=== PATIENT | female | born 1995 | race Caucasian/White ===

== ENCOUNTER 2021-01-13 15:25 | Emergency (ER) | payer OTHER ==
[~2021-01-13] VITALS: Ht 162.6 cm; Wt 64.8 kg
[~2021-01-13 15:25] MED LIST: RALTEGRAVIR 400 MG TAB (ISENTRESS) PO SCH
[2021-01-13] MEDS ORDERED: CYRE1TAB3 PO (15:32)
[2021-01-13 16:41] LABS: BASO % 0.4 % (0.0-1.0); EOS # 0.1 10^3/uL (0.0-0.5); EOS % 1.3 % (0.0-3.0); HEMATOCRIT 39.5 % (36.0-47.0); HEMOGLOBIN 13.7 g/dl (12.0-15.5); LYMPH # 2.2 10^3/uL (1.5-5.0); MEAN CORPUSCULAR HEMOGLOBIN 32.8 pg (27.0-33.0); MEAN CORPUSCULAR HGB CONC 34.7 g/dl (32.0-36.5); MEAN CORPUSCULAR VOLUME 94.5 fl (80.0-96.0); MONO # 0.5 10^3/uL (0.0-0.8); MONO % 6.7 % (2.0-8.0); NEUTROPHILS # 4.3 10^3/uL (1.5-8.5); NEUTROPHILS % 60.5 % (36.0-66.0); PLATELET COUNT, AUTOMATED 263 10^3/uL (150-450); RED BLOOD COUNT 4.18 10^6/uL (4.00-5.40); WHITE BLOOD COUNT 7.1 10^3/uL (4.0-10.0)
[2021-01-13 17:07] LABS: ALBUMIN 3.6 GM/DL (3.2-5.2); ALT/SGPT 22 U/L (12-78); BILIRUBIN,TOTAL 0.3 MG/DL (0.2-1.0); BLOOD UREA NITROGEN 9 MG/DL (7-18); CALCIUM LEVEL 9.8 MG/DL (8.5-10.1); CARBON DIOXIDE LEVEL 26 MEQ/L (21-32); CHLORIDE LEVEL 109 MEQ/L (98-107); CREATININE FOR GFR 1.02 MG/DL (0.55-1.30); GLOMERULAR FILTRATION RATE > 60.0 (>60); GLUCOSE, FASTING 90 MG/DL (70-100); POTASSIUM SERUM 3.9 MEQ/L (3.5-5.1); SODIUM LEVEL 139 MEQ/L (136-145)
[2021-01-13 17:13] LABS: HCG, SERUM QUALITATIVE NEGATIVE (NEGATIVE)
[2021-01-13 17:15] LABS: HEPATITIS B SURFACE ANTIBODY NEGATIVE (POSITIVE)
[2021-01-13] MEDS ORDERED: cefTRIAXone SOD 250MG VIAL (J0696 PER 250MG) IM ONE (17:25)
[2021-01-13] MEDS ORDERED: DOXYCYCLINE HYCLATE 100MG TABLET PO ONE (17:25)
[2021-01-13] MEDS ORDERED: LIDOCAINE 1% SDV 5ML VIAL DILUENT ONE (17:25)
[2021-01-13] MEDS ORDERED: EXPOSURE KIT-ADULT 7 DAY SUPPLY PO ONE (17:25)
[2021-01-13] MEDS ORDERED: ULIPRISTAL ACETATE 30 MG TAB (ELLA) PO ONE (17:25)
[2021-01-13] MEDS ORDERED: metroNIDAZOLE (FLAGYL) 500MG TABLET PO ONE (17:25)
[2021-01-13 17:26] LABS: HEPATITIS B SURFACE ANTIGEN NEGATIVE (NEGATIVE)
[2021-01-13 17:54] LABS: HIV 1&2 SCREEN CENTAUR NEGATIVE (NEGATIVE)
[2021-01-13] MEDS ORDERED: TRUVADA 200MG/300MG TABLET PO ONE (18:00)
[2021-01-13] MEDS ORDERED: RALTEGRAVIR 400 MG TAB (ISENTRESS) PO ONE (18:00)
[2021-01-13] MEDS ORDERED: ONDANSETRON 4 MG ORAL DISINTEGRATING TAB PO ONE (19:10)
[2021-01-13] MEDS ORDERED: RALT40TA PO (19:20)
[2021-01-13] MEDS ORDERED: EMTR1TAB16 PO (19:20)
[2021-01-13 20:38] VITALS: BP 112/61
[2021-01-14] MEDS ORDERED: TRUVADA 200MG/300MG TABLET PO SCH
== END 2021-01-13 20:40 | disposition home or self-care (01) ==
LOC: M ED 15:25
DX: T74.21XA Adult sexual abuse, confirmed, initial encounter (principal); Z88.0 Allergy status to penicillin
CPT/HCPCS: 36415; 80053; 84703; 85025; 86706; 86780; 86803; 87340; 87389; 96372; 99283; J0696; Q0162